=== PATIENT | male | born 1970 | race Caucasian/White ===

== ENCOUNTER → 2016-12-28 | Outpatient (CLI) | payer OTHER ==
[~2016-12-28] MED LIST: AMITRIPTYLINE H10 MG PO; AMLODIPINE BESY10 MG PO; AMOXICILLIN500 MG PO; ATENOLOL PO; FIORICET,ESG1 TABLET PO; FLEXERIL10 MG PO; FLEXERIL5 MG PO; IBUPROFEN800 MG PO; LISINOPRIL20 MG PO; LYRICA75 MG PO; MOBIC7.5 MG PO; MOTRIN600 MG PO; MOTRIN800 MG PO; NAPROSYN500 MG PO; NEURONTIN100 MG PO; NEURONTIN300 MG PO; NOHOMEMEDS; OMEPRAZOLE20 MG PO; OMEPRAZOLE40 M1 PO; OXYCODONE-APAP1 EACH PO; PERCOCET 10/1 TABLET PO; PERCOCET 5-3251 EACH PO; PERCOCET 5/31 TABLET PO; PREDNISONE; PREDNISONE10 MG PO; PREDNISONE20 MG PO; PRILOSEC20 MG PO; PROMETHAZINE HC25 M1 PO; RANITIDINE HCL150 MG PO; TENORMIN50 MG PO; TIZANIDINE HCL4 MG PO; TORADOL10 MG PO; TYLENOL EXTRA500 MG PO; ULTRAM50 MG PO; VALIUM2 MG PO; ZESTRIL40 MG PO; ZOFRAN ODT4 MG PO
== END | disposition home or self-care (01) ==
LOC: CDC 12:59
DX: Z01.810 Encounter for preprocedural cardiovascular examination (principal); M25.511 Pain in right shoulder; M75.101 Unspecified rotator cuff tear or rupture of right shoulder, not specified as traumatic
CPT/HCPCS: 93000

== ENCOUNTER 2016-12-30 08:16 | Day surgery (SDC) | payer OTHER ==
[~2016-12-30] VITALS: Ht 170.2 cm; Wt 72.1 kg
[~2016-12-30 08:16] MED LIST changes: -AMLODIPINE BESY10 MG PO
[2016-12-30] MEDS ORDERED: AMLODIPINE BESY10 MG PO (08:54)
[2016-12-30 08:57] VITALS: BP 123/75
[2016-12-30 09:23] LABS: AMPHETAMINES QUANT VALUE 0 NG/ML; BARBITUATES QUANT VALUE 0 NG/ML; BENZODIAZEPINES QUANT VALUE 0 NG/ML; BENZODIAZEPINES, URINE SCREEN Negative (200 ng/mL); OPIATES QUANTITATIVE VALUE 0 NG/ML; PHENCYCLIDINE QUANT VALUE 0 NG/ML
[2016-12-30 13:45] VITALS: BP 131/96
[2016-12-30 15:05] VITALS: BP 135/78
== END 2016-12-30 15:25 | disposition home or self-care (01) ==
LOC: SDC 08:16
PROVIDERS: Orthopaedic Surgery Hand Surgery
DX: S46.011A Strain of muscle(s) and tendon(s) of the rotator cuff of right shoulder, initial encounter (principal); M19.011 Primary osteoarthritis, right shoulder; M25.511 Pain in right shoulder; X50.0XXA Overexertion from strenuous movement or load, initial encounter; I10 Essential (primary) hypertension; K21.9 Gastro-esophageal reflux disease without esophagitis; F41.9 Anxiety disorder, unspecified; Z86.19 Personal history of other infectious and parasitic diseases; Z88.5 Allergy status to narcotic agent; Z88.6 Allergy status to analgesic agent
CPT/HCPCS: 80306 90; C1713; J0171; J0330; J0690; J1100; J1170; J2250; J2405; J2795; J3010

== ENCOUNTER 2017-04-11 11:07 | Emergency (ER) | payer OTHER ==
[~2017-04-11] VITALS: Ht 170.2 cm; Wt 70.1 kg
[~2017-04-11 11:07] MED LIST changes: +AMLODIPINE BESY10 MG PO
[2017-04-11 11:51] LABS: APPEARANCE CLEAR ((CLEAR)); BILIRUBIN NEGATIVE; BLOOD SMALL; COLOR COLORLESS ((YELLOW)); GLUCOSE (STRIP) NEGATIVE; KETONES NEGATIVE; LEUKOCYTES NEGATIVE; NITRITE NEGATIVE; PROTEIN (STRIP) NEGATIVE; SPECIFIC GRAVITY 1.003 (1.000-1.030); UROBILINOGEN 0.2 MG/DL (0.2-1.0)
[2017-04-11 12:09] LABS: BACTERIA NONE SEEN /HPF; EPITHELIAL CELLS NONE SEEN /HPF; MUCUS TRACE /LPF; RED BLOOD CELLS 0-5 /HPF (0-5); UCUL ADDED? NO; WHITE BLOOD CELLS NONE SEEN /HPF (0-5)
[2017-04-11] MEDS ORDERED: FLEXERIL10 MG PO (13:53)
[2017-04-11] MEDS ORDERED: MOTRIN800 MG PO (13:53)
[2017-04-11] MEDS ORDERED: LIDODERM 5% P1 PATCH TD (13:53)
[2017-04-11] MEDS ORDERED: PERCOCET 5/31 TABLET PO (14:06)
[2017-04-11 14:10] VITALS: BP 133/84
== END 2017-04-11 14:11 | disposition home or self-care (01) ==
LOC: EME 11:07
DX: S39.012A Strain of muscle, fascia and tendon of lower back, initial encounter (principal); M54.40 Lumbago with sciatica, unspecified side; G89.29 Other chronic pain; Z88.6 Allergy status to analgesic agent; Z88.5 Allergy status to narcotic agent
CPT/HCPCS: 72100; 81003; 99281; 99283; J1885

== ENCOUNTER 2017-06-09 18:54 | Emergency (ER) | payer OTHER ==
[~2017-06-09] VITALS: Ht 170.2 cm; Wt 67.9 kg
[~2017-06-09 18:54] MED LIST changes: +LIDODERM 5% P1 PATCH TD
[2017-06-09 19:02] VITALS: BP 135/100
[2017-06-09] MEDS ORDERED: VALIUM5 MG PO (21:36)
[2017-06-09] MEDS ORDERED: LIDODERM 5% P1 PATCH TD (21:36)
[2017-06-09] MEDS ORDERED: ULTRAM50 MG PO (21:37)
[2017-06-09] MEDS ORDERED: PERCOCET 5/31 TABLET PO (21:44)
== END 2017-06-09 22:10 | disposition home or self-care (01) ==
LOC: EME 18:54
DX: S39.012A Strain of muscle, fascia and tendon of lower back, initial encounter (principal); G89.29 Other chronic pain; S16.1XXA Strain of muscle, fascia and tendon at neck level, initial encounter; X50.0XXA Overexertion from strenuous movement or load, initial encounter; I10 Essential (primary) hypertension; J45.909 Unspecified asthma, uncomplicated; Z88.6 Allergy status to analgesic agent; Z88.5 Allergy status to narcotic agent
CPT/HCPCS: 72040; 72100; 99281; 99284; J1885